=== PATIENT | female | born 1960 | race Caucasian/White ===

== ENCOUNTER 2018-12-28 10:52 | Inpatient (IN) | payer BC ==
[~2018-12-28 10:52] MED LIST: EPHEDrine SULFATE 50 MG/5 ML SYG; SEVOFLURANE 15 MIN
[2018-12-28] MEDS ORDERED: TRANEXAMIC ACID 1,000 MG in DEXTROSE 5% 100 ML IV (13:30)
[2018-12-28] MEDS ORDERED: ROCURONIUM 50 MG INJ (13:52)
[2018-12-28] MEDS ORDERED: morphine SULFATE/PF (10 MG/10 ML) INJ (13:52)
[2018-12-28] MEDS ORDERED: PROPOFOL 20 ML (13:52)
[2018-12-28] MEDS ORDERED: MIDAZOLAM 1 MG/ML 2 ML INJ (13:52)
[2018-12-28] MEDS ORDERED: CEFAZOLIN 1 GM INJ (13:52)
[2018-12-28] MEDS ORDERED: ROPIVACAINE 0.5 % 30 ML VIAL (13:53)
[2018-12-28] MEDS: POLYMYXIN/BACITRACIN 1L IRRIG (14:19)
[2018-12-28] MEDS: NEOMYC/POLYMYX/BACIT 30 GM OINT (14:20)
[2018-12-28] MEDS ORDERED: POLYMYXIN B 500000 UNIT INJ (14:26)
[2018-12-28] MEDS ORDERED: ONDANSETRON 4 MG INJ (14:42)
[2018-12-28] MEDS ORDERED: METOCLOPRAMIDE 10 MG INJ (14:42)
[2018-12-28] MEDS ORDERED: DEXAMETHASONE 4 MG/ML 5 ML INJ (14:42)
[2018-12-28] MEDS ORDERED: KETOROLAC 30 MG INJ (14:42)
[2018-12-28] MEDS ORDERED: HYDROmorphONE 0.5 MG/0.5 ML SYG IV ×2 (15:30)
[2018-12-28] MEDS ORDERED: EPHEDrine SULFATE 50 MG/5 ML SYG IV (15:30)
[2018-12-28] MEDS ORDERED: NALBUPHINE HCL (10 MG/1 ML) INJ IV (15:30)
[2018-12-28] MEDS ORDERED: METOCLOPRAMIDE 10 MG INJ IV (15:30)
[2018-12-28] MEDS ORDERED: OXYCODONE/ACETAMINOPHEN (5/325) TAB PO ×2 (15:30)
[2018-12-28] MEDS ORDERED: MEPERIDINE 25 MG INJ IV (15:30)
[2018-12-28] MEDS ORDERED: HYDROmorphONE 1 MG/5 ML IV SYRINGE IV ×3 (15:30)
[2018-12-28] MEDS ORDERED: NALOXONE (0.4 MG/ML) INJ IV (15:30)
[2018-12-28] MEDS ORDERED: FENTAnyl 50 MCG/ML VIAL IV ×3 (15:30)
[2018-12-28] MEDS ORDERED: ONDANSETRON 4 MG INJ IV ×2 (15:30)
[2018-12-28] MEDS ORDERED: ACETAMINOPHEN 500 MG TAB PO (15:30)
[2018-12-28] MEDS ORDERED: morphine 2 MG INJ IV ×2 (15:30)
[2018-12-28] MEDS ORDERED: DIPHENHYDRAMINE 50 MG INJ IV ×2 (15:30)
[2018-12-28] MEDS ORDERED: KETOROLAC 30 MG INJ IV ×2 (15:30→16:00)
[2018-12-28] MEDS ORDERED: hydrALAzine 20 MG INJ IV (15:30)
[2018-12-28] MEDS ORDERED: LABETALOL HCL 20MG INJ IV (15:30)
[2018-12-28 16:19] LABS: HEMATOCRIT 36.8 % (37.0-47.0); HEMOGLOBIN 11.9 g/dl (12.0-16.0)
[2018-12-28 16:41] LABS: INR 0.92; PROTIME 12.5 Sec (11.9-14.9)
[2018-12-28] MEDS ORDERED: ASPIRIN (EC) 325 MG TAB PO (16:57)
[2018-12-28] MEDS ORDERED: CEFAZOLIN 1 GM/50 ML (PMX) 50 ML IVPB (16:57)
[2018-12-28] MEDS: CEFAZOLIN 1 GM/50 ML (PMX) 50 ML IVPB ×2 (17:00→22:18)
[2018-12-28] MEDS: ASPIRIN (EC) 325 MG TAB PO (17:00)
[2018-12-28] MEDS: HYDROCODONE/APAP (5/325) TAB PO (18:53)
[2018-12-28] MEDS: DEXTROSE 5%-0.45% NACL 1,000 ML IV (20:28)
[2018-12-28] MEDS: GABAPENTIN 300 MG CAP PO (20:28)
[2018-12-28] MEDS: BACLOFEN 10 MG TAB PO (20:28)
[2018-12-29] MEDS: HYDROCODONE/APAP (5/325) TAB PO (01:26)
[2018-12-29 04:03] LABS: HEMATOCRIT 31.5 % (37.0-47.0); HEMOGLOBIN 10.3 g/dl (12.0-16.0)
[2018-12-29] MEDS: CEFAZOLIN 1 GM/50 ML (PMX) 50 ML IVPB (05:43)
[2018-12-29] MEDS: BACLOFEN 10 MG TAB PO ×3 (08:24→20:39)
[2018-12-29] MEDS: GABAPENTIN 300 MG CAP PO ×3 (08:24→20:39)
[2018-12-29] MEDS: DEXTROSE 5%-0.45% NACL 1,000 ML IV (08:24)
[2018-12-29 08:49] LABS: HEMATOCRIT 30.9 % (37.0-47.0); HEMOGLOBIN 10.2 g/dl (12.0-16.0)
[2018-12-29] MEDS: ASPIRIN (EC) 325 MG TAB PO (09:56)
[2018-12-29] MEDS: OXYCODONE/ACETAMINOPHEN (5/325) TAB PO ×5 (10:01→22:53)
[2018-12-29 10:13] LABS: ANION GAP 8 (5-13); BLOOD UREA NITROGEN 12 mg/dl (7-20); CALCIUM 8.8 mg/dl (8.4-10.2); CARBON DIOXIDE 24 mmol/L (21-31); CHLORIDE 107 mmol/L (97-110); CREATININE 0.75 mg/dl (0.44-1.00); Estimated GFR > 60 mL/min (>60); GLUCOSE 103 mg/dl (70-220); POTASSIUM 4.2 mmol/L (3.5-5.1); SODIUM 139 mmol/L (135-144)
[2018-12-29] MEDS: morphine SULFATE/PF (2 MG/2 ML) SYG IV ×2 (19:44→21:59)
[2018-12-29] MEDS: ALPRAZOLAM 1 MG TAB PO (20:39)
[2018-12-29] MEDS: KETOROLAC 30 MG INJ IV (20:40)
[2018-12-30] MEDS: DEXTROSE 5%-0.45% NACL 1,000 ML IV ×2 (00:06→14:24)
[2018-12-30] MEDS: HYDROmorphONE 0.5 MG/0.5 ML SYG IV ×5 (00:35→21:00)
[2018-12-30] MEDS: ALPRAZOLAM 1 MG TAB PO ×4 (00:40→21:14)
[2018-12-30] MEDS: KETOROLAC 30 MG INJ IV ×2 (02:35→20:04)
[2018-12-30] MEDS: OXYCODONE/ACETAMINOPHEN (5/325) TAB PO ×6 (02:35→23:29)
[2018-12-30 05:20] LABS: ADD MAN DIFF? NO
[2018-12-30 05:26] LABS: BASOPHILS % 0.6 % (0.0-2.0); EOSINOPHILS # 0.3 10^3/ul (0.0-0.5); EOSINOPHILS % 4.1 % (0.0-7.0); HEMATOCRIT 29.9 % (37.0-47.0); HEMOGLOBIN 9.9 g/dl (12.0-16.0); LYMPHOCYTES # 2.1 10^3/ul (0.8-2.9); LYMPHOCYTES % 33.7 % (15.0-51.0); MEAN CORPUSCULAR HEMOGLOBIN 31.6 pg (29.0-33.0); MEAN CORPUSCULAR HGB CONC 33.1 g/dl (32.0-37.0); MEAN CORPUSCULAR VOLUME 95.5 fl (82.0-101.0); MEAN PLATELET VOLUME 10.2 fl (7.4-10.4); MONOCYTE # 0.5 10^3/ul (0.3-0.9); MONOCYTES % 8.1 % (0.0-11.0); NEUTROPHIL # 3.3 10^3/ul (1.6-7.5); NEUTROPHILS % 53.3 % (39.0-77.0); PLATELET COUNT 192 10^3/UL (140-415); RED BLOOD COUNT 3.13 10^6/ul (4.20-5.40); RED CELL DISTRIBUTION WIDTH 12.9 % (11.5-14.5)
[2018-12-30 05:26] LABS: WHITE BLOOD COUNT 6.3 10^3/ul (4.8-10.8)
[2018-12-30 05:44] LABS: PHOSPHORUS 4.4 mg/dl (2.5-4.9)
[2018-12-30] MEDS: GABAPENTIN 300 MG CAP PO ×4 (09:16→21:14)
[2018-12-30] MEDS: BACLOFEN 10 MG TAB PO ×3 (09:16→21:14)
[2018-12-30] MEDS: ASPIRIN (EC) 325 MG TAB PO (09:16)
[2018-12-30] MEDS ORDERED: AL HYDROX/MG HYDROX/SIMETH 30 ML CUP (18:00)
[2018-12-30] MEDS: AL HYDROX/MG HYDROX/SIMETH 30 ML CUP PO (18:04)
[2018-12-31] MEDS: OXYCODONE/ACETAMINOPHEN (5/325) TAB PO ×3 (04:03→12:53)
[2018-12-31 05:20] LABS: ADD MAN DIFF? NO
[2018-12-31 05:27] LABS: WHITE BLOOD COUNT 6.8 10^3/ul (4.8-10.8)
[2018-12-31 05:27] LABS: BASOPHILS % 0.4 % (0.0-2.0); EOSINOPHILS # 0.4 10^3/ul (0.0-0.5); EOSINOPHILS % 5.6 % (0.0-7.0); HEMATOCRIT 30.2 % (37.0-47.0); HEMOGLOBIN 9.8 g/dl (12.0-16.0); LYMPHOCYTES # 1.7 10^3/ul (0.8-2.9); LYMPHOCYTES % 24.9 % (15.0-51.0); MEAN CORPUSCULAR HEMOGLOBIN 31.4 pg (29.0-33.0); MEAN CORPUSCULAR HGB CONC 32.5 g/dl (32.0-37.0); MEAN CORPUSCULAR VOLUME 96.8 fl (82.0-101.0); MEAN PLATELET VOLUME 10.3 fl (7.4-10.4); MONOCYTE # 0.5 10^3/ul (0.3-0.9); MONOCYTES % 6.7 % (0.0-11.0); NEUTROPHIL # 4.2 10^3/ul (1.6-7.5); NEUTROPHILS % 62.1 % (39.0-77.0); PLATELET COUNT 197 10^3/UL (140-415); RED BLOOD COUNT 3.12 10^6/ul (4.20-5.40); RED CELL DISTRIBUTION WIDTH 13.1 % (11.5-14.5)
[2018-12-31] MEDS: ALPRAZOLAM 1 MG TAB PO ×2 (05:35→14:00)
[2018-12-31] MEDS: GABAPENTIN 300 MG CAP PO ×2 (08:20→12:53)
[2018-12-31] MEDS: BACLOFEN 10 MG TAB PO ×2 (08:20→12:53)
[2018-12-31] MEDS: ASPIRIN (EC) 325 MG TAB PO (08:21)
== END 2018-12-31 18:10 | disposition home health service (06) | DRG 470 ==
LOC: REC 10:52 → MS1 17:31
PROC: 0SRD069 Replacement of Left Knee Joint with Oxidized Zirconium on Polyethylene Synthetic Substitute, Cemented, Open Approach (ICD-10-PCS; principal; 2018-12-28 13:30)
DX: M17.12 Unilateral primary osteoarthritis, left knee (principal); M79.7 Fibromyalgia; D64.9 Anemia, unspecified; Z87.891 Personal history of nicotine dependence
CPT/HCPCS: 76856; 80048; 82310; 83735; 84100; 85014; 85018; 85025; 85610; 88304; 88311; 97110; 97116; 97161; 97530